=== PATIENT | male | born 1990 | race Caucasian/White ===

== ENCOUNTER 2018-01-09 04:19 | Outpatient (CLI) | payer BC, OTHER | END 2018-01-09 04:20 | disposition EMS.NT | LOC: EMS 04:19 | PROVIDERS: ATTEND Surgery | DX: S09.93XA Unspecified injury of face, initial encounter (principal); Y04.2XXA Assault by strike against or bumped into by another person, initial encounter ==

== ENCOUNTER 2018-01-09 10:39 | Emergency (ER) | payer BC, OTHER ==
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
[2018-01-09] MEDS ORDERED: LIDOCAINE 2% 10 ML MDV SUBQ STA (11:24)
[2018-01-09] MEDS ORDERED: BACITRACIN OINT TOP STA (12:04)
[2018-01-09 12:20] VITALS: BP 130/61
== END 2018-01-09 12:18 | disposition home or self-care (01) ==
LOC: ED 10:39
DX: S01.412A Laceration without foreign body of left cheek and temporomandibular area, initial encounter (principal); Y04.2XXA Assault by strike against or bumped into by another person, initial encounter
CPT/HCPCS: 12011; 99282; 99283; A9270